=== PATIENT | female | born 1980 | race Caucasian/White ===

== ENCOUNTER 2016-12-27 17:10 | Emergency (ER) | payer OTHER ==
[~2016-12-27] VITALS: Ht 160 cm; Wt 89.0 kg
[2016-12-27 17:12] VITALS: Ht 160 cm; Wt 89.0 kg
[2016-12-27] MEDS ORDERED: ACETAMINOPHEN 325 MG TAB PO STA (17:32)
--- NOTE | 2016-12-27 17:39 | ERD ---
ER Documentation Chief Complaint Date/Time DATE: 12/27/16 TIME: 17:37 Chief Complaint 12 weeks with abd cramping HPI This is a 36-year-old female presenting to emergency department with healthy cramping while . Patient states she believes she is about 12 weeks . Patient is a A1. Patient states she went to her first OB appointment today and used a Doppler and was unable to detect heart tones. Patient states she was told to go to the ER for ultrasound and evaluation. Patient also states she has having right-sided lower pelvic pain. Denies vaginal bleeding or vaginal discharge. No fevers or chills. No nausea or vomiting. 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 ROS All systems reviewed and are negative except as per history of present illness. Medications Home Meds Active Scripts Ondansetron (Ondansetron Odt) 4 Mg Tab.rapdis, 4 MG PO Q6H Y for NAUSEA AND/OR VOMITING, #20 TAB Prov:MONICA DENG 12/28/16 Acetaminophen* (Tylenol*) 500 Mg Tab, 1000 MG PO Q8H Y for PAIN AND OR ELEVATED TEMP for 5 Days, TAB Prov:MONICA DENG 12/28/16 Acetaminophen* (Tylenol*) 325 Mg Tablet, 1 TAB PO Q6 Y for PAIN AND OR ELEVATED TEMP, #20 TAB Prov:RY JOHNSON NP 12/27/16 Nitrofurantoin Monohyd Macrocr* (Macrobid*) 100 Mg Capsr, 100 MG PO BID for 5 Days, CAP Prov:RY JOHNSON NP 12/27/16 Allergies Allergies: Coded Allergies: sumatriptan (Verified Allergy, Unknown, 12/28/16) Physical Exam Vitals Vital Signs Date Time Temp Pulse Resp B/P Pulse Ox O2 Delivery O2 Flow Rate FiO2 12/27/16 17:12 98.1 80 18 132/75 99 Physical Exam Const: No acute distress, alert Head: Atraumatic Eyes: Normal Conjunctiva ENT: Normal External Ears, Nose and Mouth. Neck: Full range of motion..~ No meningismus. Resp: Clear to auscultation bilaterally Cardio: Regular rate and rhythm, no murmurs Abd: Soft, non tender, non distended. Normal bowel sounds Skin: No petechiae or rashes Back: No midline or flank tenderness Ext: No cyanosis, or edema Neur: Awake and alert Psych: Normal Mood and Affect Result Diagram: 12/27/16 1750 Results 24 hrs Laboratory Tests Test 12/27/16 17:50 White Blood Count 10.710^3/ul Red Blood Count 4.1410^6/ul Hemoglobin 12.2g/dl Hematocrit 36.5% Mean Corpuscular Volume 88.2fl Mean Corpuscular Hemoglobin 29.5pg Mean Corpuscular Hemoglobin Concent 33.4g/dl Red Cell Distribution Width 13.1% Platelet Count 35658^3/UL Mean Platelet Volume 9.3fl Neutrophils % 65.9% Lymphocytes % 26.0% Monocytes % 5.7% Eosinophils % 1.5% Basophils % 0.5% Nucleated Red Blood Cells % 0.0/100WBC Neutrophils # (Manual) 710^3/ul Lymphocytes # 2.810^3/ul Monocytes # 0.610^3/ul Eosinophils # 0.210^3/ul Basophils # 0.110^3/ul Nucleated Red Blood Cells # 0.010^3/ul Urine Color YELLOW Urine Clarity SLIGHTLY CLOUDY Urine pH 5.0 Urine Specific [place] 1.017 Urine Ketones NEGATIVEmg/dL Urine Nitrite NEGATIVEmg/dL Urine Bilirubin NEGATIVEmg/dL Urine Urobilinogen NEGATIVEmg/dL Urine Leukocyte Esterase TRACELeu/ul Urine Microscopic RBC 1/HPF Urine Microscopic WBC 1/HPF Urine Squamous Epithelial Cells FEW/HPF Urine Bacteria FEW/HPF Urine Mucus FEW/HPF Urine Hemoglobin NEGATIVEmg/dL Urine Glucose NEGATIVEmg/dL Urine Total Protein NEGATIVEmg/dl Beta HCG, Quantitative 63464.0mIU/ml Current Medications Medications (Trade) Dose Ordered Sig/Vera Route PRN Reason Start Time Stop Time Status Last Admin Dose Admin Acetaminophen (Tylenol Tab) 650 mg ONCE STAT PO 12/27/16 17:32 12/27/16 17:35 DC 12/27/16 17:42 Procedures/MDM [place] [id number] Radiology Main Line: [phone] DIAGNOSTIC IMAGING REPORT Patient: NOMRA HOLLOWAY : 1980 Age: 36 Sex: F MR #: [id number] DOS: 12/27/16 1732 Ordering MD: RY JOHNSON NP Location: [facility] Room/Bed: PROCEDURE: US OB. CLINICAL INDICATION: Positive . Vaginal bleeding. Evaluate viability , no heart tones detected at clinic TECHNIQUE: Transabdominal views of the pelvis are available for review. COMPARISON: No prior studies are available for comparison. FINDINGS: Uterus: No evidence of masses and normal in size estimated at 11.8 x 7.3 cm. Endometrial cavity: Intrauterine gestational sac, yolk sac and pole are present with the following information: [place]-rump length: 1.65 cm heart rate: 168 bpm Gestational sac: 3.08 cm Ultrasound estimated gestational age: 8 weeks 1 day Small hypoechoic subchorionic hemorrhage measures 2 x 1.5 x 0.6 cm. Right ovary/adnexa: The ovary is not visualized. No adnexal mass lesion is seen. Left ovary/adnexa: The ovary is not visualized. No adnexal mass lesion is seen. Cul-de-sac: There is no free fluid. RPTAT:HJJR IMPRESSION: 1. Single viable intrauterine with an estimated gestational age of 8 weeks 1 day, the estimated date of delivery 08/07/2017. 2. Subchorionic hemorrhage estimated at 2 cm. Consider follow-up evaluation. MDM: This is a 36-year-old female presenting to emergency department with right- sided lower pelvic cramping starting today. Patient is currently 12 weeks with last menstrual period . Patient denies vaginal bleeding or vaginal discharge. Vital signs are stable. No fevers or chills. Labs and urine collected. OB ultrasound reviewed by radiologist as single viable intrauterine with an estimated gestational age of 8 weeks 1 day. Subchorionic hemorrhage estimated at 2 cm. CBC shows no significant anemia [place]. [place] [address].0. UA shows few bacteria and mucus. Patient given Tylenol p.o. while in the ED. patient is alert and oriented throughout ED visit. Patient is stable and nontoxic-appearing. Differential diagnosis includes but not limited to ectopic , threatened , missed , normal , subchorionic hemorrhage , ruptured ovarian cyst, UTI or pyelonephritis. Patient is appropriate for outpatient management. Patient was given prescription for Macrobid and Tylenol. Return to ED sooner for any high fever, chest pain, difficulty breathing, shortness breath, wheezing, vomiting, diarrhea , abdominal pain or any new or worsening symptoms. Patient verbalizes understanding. All questions answered at discharge. Departure Diagnosis: Primary Impression: Pelvic pain affecting Additional Impression: Weeks of gestation: 8 weeks Qualified Code: Z3A.08 - 8 weeks gestation of Condition: Stable RY JOHNSON NP Dec 27, 2016 17:39
[2016-12-27 18:15] LABS: BASOPHIL # 0.1 10^3/ul (0.0-0.1); BASOPHILS % 0.5 % (0.0-2.0); EOSINOPHILS # 0.2 10^3/ul (0.0-0.5); EOSINOPHILS % 1.5 % (0.0-7.0); HEMATOCRIT 36.5 % (37.0-47.0); HEMOGLOBIN 12.2 g/dl (12.0-16.0); LYMPHOCYTES # 2.8 10^3/ul (0.8-2.9); MEAN CORPUSCULAR HEMOGLOBIN 29.5 pg (29.0-33.0); MEAN CORPUSCULAR HGB CONC 33.4 g/dl (32.0-37.0); MEAN CORPUSCULAR VOLUME 88.2 fl (82.0-101.0); MEAN PLATELET VOLUME 9.3 fl (7.4-10.4); MONOCYTE # 0.6 10^3/ul (0.3-0.9); MONOCYTES % 5.7 % (0.0-11.0); NEUTROPHILS % 65.9 % (39.0-77.0); PLATELET COUNT 288 10^3/UL (140-415); RED BLOOD COUNT 4.14 10^6/ul (4.20-5.40); RED CELL DISTRIBUTION WIDTH 13.1 % (11.5-14.5); WHITE BLOOD COUNT 10.7 10^3/ul (4.8-10.8)
[2016-12-27 18:23] LABS: ADD UMIC YES; UR ASCORBIC ACID NEGATIVE (NEGATIVE); UR BACTERIA FEW /HPF (NONE SEEN); UR BILIRUBIN (Dip) NEGATIVE (NEGATIVE); UR BLOOD (Dip) NEGATIVE (NEGATIVE); UR CLARITY SLIGHTLY CLOUDY (CLEAR); UR COLOR YELLOW (YELLOW); UR GLUCOSE (Dip) NEGATIVE (NEGATIVE); UR KETONES (Dip) NEGATIVE (NEGATIVE); UR LEUKOCYTE ESTERASE (Dip) TRACE Leu/ul (NEGATIVE); UR MUCUS FEW /HPF (NONE SEEN); UR NITRITE (Dip) NEGATIVE (NEGATIVE); UR RBC 1 /HPF (0-5); UR SPECIFIC GRAVITY (Dip) 1.017 (1.003-1.030); UR SQUAMOUS EPITHELIAL CELL FEW /HPF (FEW); UR TOTAL PROTEIN (Dip) NEGATIVE (NEGATIVE); UR UROBILINOGEN (Dip) NEGATIVE (NEGATIVE)
--- NOTE | 2016-12-27 18:32 | RADRPT ---
PROCEDURE: US OB. CLINICAL INDICATION: Positive . Vaginal bleeding. Evaluate viability, no heart ton es detected at clinic TECHNIQUE: Transabdominal views of the pelvis are available for review. COMPARISON: No prior studies are available for comparison. FINDINGS: Uterus: No evidence of masses and normal in size estimated at 11.8 x 7.3 cm. Endometrial cavity: Intrauterine gestational sac, yolk sac and pole are present with the foll owing information: [place]-rump length:1.65 cm heart rate:168 bpm Gestational sac:3.08 cm Ultrasound estimated gestational age:8 weeks 1 day Small hypoechoic subchorionic hemorrhage measures 2 x 1.5 x 0.6 cm. Right ovary/adnexa: The ovary is not visualized. No adnexal mass lesion is seen. Left ovary/adnexa: The ovary is not visualized. No adnexal mass lesion is seen. Cul-de-sac: There is no free fluid. RPTAT:HJJR IMPRESSION: 1. Single viable intrauterine with an estimated gestational age of 8 weeks 1 day, the est imated date of delivery 08/07/2017. 2. Subchorionic hemorrhage estimated at 2 cm. Consider follow-up evaluation. Physician Rosana Date Time Electronically viewed and signed by Physician Rosana on 12/27/2016 18:32 JR/
[2016-12-27] MEDS ORDERED: ACET325T33 PO (19:29)
[2016-12-27] MEDS ORDERED: NITR-58 PO (19:29)
[2016-12-28] MEDS ORDERED: ONDA4TAB14 PO (13:42)
[2016-12-28] MEDS ORDERED: TYL500 PO (13:42)
== END 2016-12-27 19:36 | disposition home or self-care (01) ==
LOC: FTE 17:10
DX: O26.891 Other specified pregnancy related conditions, first trimester (principal); R10.2 Pelvic and perineal pain; Z3A.08 8 weeks gestation of pregnancy
CPT/HCPCS: 36415; 76801; 81001; 84702; 85025; 86900; 86901; Z7502; Z7610

== ENCOUNTER 2016-12-28 11:17 | Emergency (ER) | payer OTHER ==
[~2016-12-28] VITALS: Wt 99.6 kg
[~2016-12-28 11:17] MED LIST: ACET325T33 PO; NITR-58 PO
[2016-12-28] MEDS ORDERED: ACETAMINOPHEN 500 MG TAB PO STA (11:56)
[2016-12-28] MEDS ORDERED: DIPHENHYDRAMINE 50 MG INJ IV ONE (12:00)
[2016-12-28] MEDS ORDERED: METOCLOPRAMIDE 10 MG INJ IV ONE (12:00)
[2016-12-28] MEDS ORDERED: SOD CHLORIDE 0.9% 1,000 ML IV ONE (12:00)
[2016-12-28 12:34] LABS: BASOPHILS % 0.2 % (0.0-2.0); EOSINOPHILS # 0.1 10^3/ul (0.0-0.5); EOSINOPHILS % 1.3 % (0.0-7.0); HEMATOCRIT 37.1 % (37.0-47.0); HEMOGLOBIN 12.5 g/dl (12.0-16.0); LYMPHOCYTES # 2.2 10^3/ul (0.8-2.9); LYMPHOCYTES % 26.7 % (15.0-51.0); MEAN CORPUSCULAR HEMOGLOBIN 29.5 pg (29.0-33.0); MEAN CORPUSCULAR HGB CONC 33.7 g/dl (32.0-37.0); MEAN CORPUSCULAR VOLUME 87.5 fl (82.0-101.0); MEAN PLATELET VOLUME 9.1 fl (7.4-10.4); MONOCYTE # 0.5 10^3/ul (0.3-0.9); NEUTROPHILS % 65.4 % (39.0-77.0); PLATELET COUNT 276 10^3/UL (140-415); RED BLOOD COUNT 4.24 10^6/ul (4.20-5.40); RED CELL DISTRIBUTION WIDTH 13.2 % (11.5-14.5); WHITE BLOOD COUNT 8.3 10^3/ul (4.8-10.8)
[2016-12-28 12:44] LABS: ADD UMIC YES; UR ASCORBIC ACID NEGATIVE (NEGATIVE); UR BACTERIA FEW /HPF (NONE SEEN); UR BILIRUBIN (Dip) NEGATIVE (NEGATIVE); UR BLOOD (Dip) NEGATIVE (NEGATIVE); UR CLARITY CLOUDY (CLEAR); UR COLOR YELLOW (YELLOW); UR GLUCOSE (Dip) NEGATIVE (NEGATIVE); UR KETONES (Dip) NEGATIVE (NEGATIVE); UR LEUKOCYTE ESTERASE (Dip) 3+ Leu/ul (NEGATIVE); UR NITRITE (Dip) NEGATIVE (NEGATIVE); UR RBC 0 /HPF (0-5); UR SPECIFIC GRAVITY (Dip) 1.014 (1.003-1.030); UR SQUAMOUS EPITHELIAL CELL MANY /HPF (FEW); UR TOTAL PROTEIN (Dip) NEGATIVE (NEGATIVE); UR UROBILINOGEN (Dip) NEGATIVE (NEGATIVE)
[2016-12-28 12:54] LABS: ALBUMIN 4.2 g/dl (3.3-4.9); ALBUMIN/GLOBULIN RATIO 1.2; BILIRUBIN,INDIRECT 0.4 mg/dl (0-1.1); BILIRUBIN,TOTAL 0.4 mg/dl (0.2-1.3); CALCIUM 9.1 mg/dl (8.4-10.2); CREATININE 0.66 mg/dl (0.44-1.00); POTASSIUM 3.6 mmol/L (3.5-5.1); TOTAL PROTEIN 7.7 g/dl (6.1-8.1)
[2016-12-28] MEDS ORDERED: ONDA4TAB14 PO (13:42)
[2016-12-28] MEDS ORDERED: TYL500 PO (13:42)
--- NOTE | 2016-12-28 13:50 | ERD ---
ER Documentation Chief Complaint Date/Time DATE: 12/28/16 TIME: 13:44 Chief Complaint ABD PAIN, N/V, PT 8 WKS PG, NO VB HPI This is a 36-year-old female presents to the ER for headache that started yesterday after she was here in the ER. Patient was sent because the doctor could not hear any heart tones, however ultrasound was completely normal yesterday. Patient states that headache is throbbing in quality she does admit to photophobia. Patient has a history of migraine headaches, however states that today she began to have nausea and nonbilious nonbloody vomiting. She tried taking Tylenol for the pain, however she vomited Tylenol up. Patient denies any urinary frequency or dysuria, however she does have a UTI which was found yesterday. Patient has not gone to fill her prescription. Patient denies any flank pain at this time. She has not had any fevers or chills. She denies any trauma. A1. ROS 12 point review of systems was done, all negative except per HPI. Medications Home Meds Active Scripts Ondansetron (Ondansetron Odt) 4 Mg Tab.rapdis, 4 MG PO Q6H Y for NAUSEA AND/OR VOMITING, #20 TAB Prov:MONICA DENG 12/28/16 Acetaminophen* (Tylenol*) 500 Mg Tab, 1000 MG PO Q8H Y for PAIN AND OR ELEVATED TEMP for 5 Days, TAB Prov:MONICA DENG C 12/28/16 Acetaminophen* (Tylenol*) 325 Mg Tablet, 1 TAB PO Q6 Y for PAIN AND OR ELEVATED TEMP, #20 TAB Prov:RY JOHNSON NP 12/27/16 Nitrofurantoin Monohyd Macrocr* (Macrobid*) 100 Mg Capsr, 100 MG PO BID for 5 Days, CAP Prov:RY JOHNSON NP 12/27/16 Allergies Allergies: Coded Allergies: sumatriptan (Verified Allergy, Unknown, 12/28/16) PMhx/Soc History of Surgery: Yes (csect) Hx Neurological Disorder: Yes (migraine) Hx Respiratory Disorders: Yes (asthma) Hx Substance Use: No Hx Tobacco Use: No Physical Exam Vitals Vital Signs Date Time Temp Pulse Resp B/P Pulse Ox O2 Delivery O2 Flow Rate FiO2 12/28/16 11:19 98.3 80 18 129/64 100 Physical Exam GENERAL: The patient is well developed and appropriate for usual state of health , in no apparent distress. HEENT: Atraumatic. Conjunctivae are pink. Pupils equal, round, and reactive to light. Extraocular muscles are grossly intact. Bilateral tympanic membranes are clear with no evidence of erythema, bulging or perforation. No sinus tenderness. NECK: C-spine is soft and supple. There is no cervical lymphadenopathy. CHEST: Clear to auscultation bilaterally. There are no rales, wheezes or rhonchi. HEART: Regular rate and rhythm. No murmurs, clicks, rubs or gallops. EXTREMITIES: Equal pulses bilaterally. There is no peripheral clubbing, cyanosis or edema. No focal swelling or erythema. Full range of motion. Grossly neurovascularly intact. NEURO: Alert and oriented. Cranial nerves II through XII are intact. Motor strength in all 4 extremities with 5/5 strength. Sensation grossly intact. Normal speech and gait. Negative [place]om[place]. +2 DTRs. SKIN: There is no apparent rash or petechia. The skin is warm and dry. Result Diagram: 12/28/16 1220 12/28/16 1220 Results 24 hrs Laboratory Tests Test 12/28/16 12:20 White Blood Count 8.310^3/ul Red Blood Count 4.2410^6/ul Hemoglobin 12.5g/dl Hematocrit 37.1% Mean Corpuscular Volume 87.5fl Mean Corpuscular Hemoglobin 29.5pg Mean Corpuscular Hemoglobin Concent 33.7g/dl Red Cell Distribution Width 13.2% Platelet Count 68044^3/UL Mean Platelet Volume 9.1fl Neutrophils % 65.4% Lymphocytes % 26.7% Monocytes % 6.0% Eosinophils % 1.3% Basophils % 0.2% Nucleated Red Blood Cells % 0.0/100WBC Neutrophils # (Manual) 510^3/ul Lymphocytes # 2.210^3/ul Monocytes # 0.510^3/ul Eosinophils # 0.110^3/ul Basophils # 0.010^3/ul Nucleated Red Blood Cells # 0.010^3/ul Urine Color YELLOW Urine Clarity CLOUDY Urine pH 7.0 Urine Specific [place] 1.014 Urine Ketones NEGATIVEmg/dL Urine Nitrite NEGATIVEmg/dL Urine Bilirubin NEGATIVEmg/dL Urine Urobilinogen NEGATIVEmg/dL Urine Leukocyte Esterase 3+Tj/ul Urine Microscopic RBC 0/HPF Urine Microscopic WBC 7/HPF Urine Squamous Epithelial Cells MANY/HPF Urine Bacteria FEW/HPF Urine Hemoglobin NEGATIVEmg/dL Urine Glucose NEGATIVEmg/dL Urine Total Protein NEGATIVEmg/dl Sodium Level 138mmol/L Potassium Level 3.6mmol/L Chloride Level 103mmol/L Carbon Dioxide Level 26mmol/L Anion Gap 13 Blood Urea Nitrogen 8mg/dl Creatinine 0.66mg/dl Glucose Level 88mg/dl Calcium Level 9.1mg/dl Total Bilirubin 0.4mg/dl Direct Bilirubin 0.00mg/dl Indirect Bilirubin 0.4mg/dl Aspartate Amino Transf (AST/SGOT) 37IU/L Alanine Aminotransferase (ALT/SGPT) 52IU/L Alkaline Phosphatase 76IU/L Total Protein 7.7g/dl Albumin 4.2g/dl Globulin 3.50g/dl Albumin/Globulin Ratio 1.20 Current Medications Medications (Trade) Dose Ordered Sig/Vera Route PRN Reason Start Time Stop Time Status Last Admin Dose Admin Acetaminophen 1000 mg 1,000 mg ONCE STAT PO 12/28/16 11:56 12/28/16 11:59 DC 12/28/16 12:43 Sodium Chloride (NS) 1,000 ml @ 1,000 mls/hr Q1H ONCE IV 12/28/16 12:00 12/28/16 12:59 DC 12/28/16 12:37 Metoclopramide HCl (Reglan) 10 mg ONCE ONCE IV 12/28/16 12:00 12/28/16 12:01 DC 12/28/16 12:43 Diphenhydramine HCl (Benadryl) 25 mg ONCE ONCE IV 12/28/16 12:00 12/28/16 12:01 DC 12/28/16 12:43 Procedures/MDM Differential Diagnosis includes but is not limited to; tension headache, migraine headache, cluster headache, sinus headache, nonspecific febrile headache, trigeminal neurologia, subdural hematoma, subarachnoid bleeding, meningitis, encephalitis. Patient is neurologically intact with no focal neurological deficits. At this time patient is likely suffering from a migraine headache. Patient does have a past medical history of this, in the ER she was given Tylenol, fluids, Reglan, Benadryl she felt significantly better after this. There was no evidence of severe dehydration as her electrolytes were normal and she did not have any episodes of vomiting in the ER. Patient successfully ate some peter crackers and a Sprite soda. Patient does have significant UTI, she was told to immediately fill the prescription she was given yesterday. Patient showed me prescription, and stated she would go upon discharge. Patient is afebrile and extremely well-appearing. Patient is to follow-up with her primary care doctor within 1-2 days return to ER sooner if symptoms worsen. My medical decision making shared with the patient she understands and agrees to plan. Departure Diagnosis: Primary Impression: Migraine headache Additional Impression: Nausea and vomiting Condition: Stable Patient Instructions: Nausea and Vomiting-Adult Additional Instructions: Call your primary care doctor TOMORROW for an appointment during the next 1-2 days.See the doctor sooner or return here if your condition worsens before your appointment time. MONICA DENG Dec 28, 2016 13:50
[2016-12-28 14:42] VITALS: BP 106/55; PULSE 71; RESP 19; TEMP 98.2
== END 2016-12-28 14:43 | disposition home or self-care (01) ==
LOC: FTE 11:17
DX: G43.909 Migraine, unspecified, not intractable, without status migrainosus (principal); R11.2 Nausea with vomiting, unspecified; J45.909 Unspecified asthma, uncomplicated
CPT/HCPCS: 36415; 80053; 81001; 85025; 96374; 96375; J1200; J2765; J7030; Z7502; Z7610

== ENCOUNTER 2017-01-28 20:17 | Emergency (ER) | payer OTHER ==
[~2017-01-28] VITALS: Ht 167.6 cm; Wt 104.0 kg
[~2017-01-28 20:17] MED LIST changes: +ONDA4TAB14 PO; +TYL500 PO
[2017-01-28 20:19] VITALS: Ht 167.6 cm; Wt 104.0 kg
--- NOTE | 2017-01-28 22:40 | ERD ---
ER Documentation Chief Complaint Date/Time DATE: 01/28/17 TIME: 22:39 Chief Complaint 15 wks , pelvic pain x 2 day HPI 36-year-old female presents here in emergency department for complaints of pelvic pain for 2 days. Patient is approximately 15 weeks . Is 7 para 6 .. Due date is 07/09/2017. LMP 10/03/2016. Patient's complete of pelvic pain and cramping pain, for/and scale, not better or worse with anything. Patient denies any hematuria or dysuria. Patient denies any fever or chills. Patient denies any flank pain. Patient denies any vaginal bleeding. ROS All systems reviewed and are negative except as per history of present illness. Medications Home Meds Active Scripts Ondansetron (Ondansetron Odt) 4 Mg Tab.rapdis, 4 MG PO Q6H Y for NAUSEA AND/OR VOMITING, #20 TAB Prov:MONICA DENG C 12/28/16 Acetaminophen* (Tylenol*) 500 Mg Tab, 1000 MG PO Q8H Y for PAIN AND OR ELEVATED TEMP for 5 Days, TAB Prov:MONICA DENG 12/28/16 Acetaminophen* (Tylenol*) 325 Mg Tablet, 1 TAB PO Q6 Y for PAIN AND OR ELEVATED TEMP, #20 TAB Prov:RY JOHNSON NP 12/27/16 Nitrofurantoin Monohyd Macrocr* (Macrobid*) 100 Mg Capsr, 100 MG PO BID for 5 Days, CAP Prov:RY JOHNSON NP 12/27/16 Allergies Allergies: Coded Allergies: sumatriptan (Verified Adverse Reaction, Severe, nausea, vomit, 01/28/17) PMhx/Soc History of Surgery: Yes (csec x4) Anesthesia Reaction: No Hx Neurological Disorder: Yes (migraine) Hx Respiratory Disorders: Yes (asthma) Hx Cardiac Disorders: No Hx Psychiatric Problems: No Hx Miscellaneous Medical Probl: No Hx Alcohol Use: No (stop ETOH) 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 CHEST: Clear to auscultation bilaterally. There are no rales, wheezes or rhonchi. HEART: Regular rate and rhythm. No murmurs, clicks, rubs or gallops. No S3 or S4. ABDOMEN: Soft, nontender and nondistended. Good bowel sounds. No rebound or guarding. No gross peritonitis. No gross organomegaly or masses. No Elmore sign or McBurney point tenderness. BACK: No midline or flank tenderness. EXTREMITIES: Equal pulses bilaterally. There is no peripheral clubbing, cyanosis or edema. No focal swelling or erythema. Full range of motion. Grossly neurovascularly intact. NEURO: Alert and oriented. Cranial nerves 2-12 intact. Motor strength in all 4 extremities with 5/5 strength. Sensation grossly intact. Normal speech and gait. SKIN: There is no apparent rash or petechia. The skin is warm and dry. HEMATOLOGIC AND LYMPHATIC: There is no evidence of excessive bruising or lymphedema. No gross cervical, axillary, or inguinal lymphadenopathy. Result Diagram: 01/28/17223901/28/172239 Results 24 hrs Laboratory Tests Test 01/28/17 22:40 01/28/17 22:44 01/28/17 22:47 White Blood Count 11.210^3/ul Red Blood Count 3.9510^6/ul Hemoglobin 11.7g/dl Hematocrit 35.3% Mean Corpuscular Volume 89.4fl Mean Corpuscular Hemoglobin 29.6pg Mean Corpuscular Hemoglobin Concent 33.1g/dl Red Cell Distribution Width 13.2% Platelet Count 81862^3/UL Mean Platelet Volume 9.1fl Neutrophils % 63.4% Lymphocytes % 27.9% Monocytes % 6.3% Eosinophils % 1.8% Basophils % 0.2% Nucleated Red Blood Cells % 0.0/100WBC Neutrophils # 7.110^3/ul Lymphocytes # 3.110^3/ul Monocytes # 0.710^3/ul Eosinophils # 0.210^3/ul Basophils # 0.010^3/ul Nucleated Red Blood Cells # 0.010^3/ul Sodium Level 140mmol/L Potassium Level 3.8mmol/L Chloride Level 105mmol/L Carbon Dioxide Level 27mmol/L Anion Gap 12 Blood Urea Nitrogen 12mg/dl Creatinine 0.65mg/dl Glucose Level 85mg/dl Calcium Level 9.4mg/dl Total Bilirubin 0.1mg/dl Direct Bilirubin 0.00mg/dl Indirect Bilirubin 0.1mg/dl Aspartate Amino Transf (AST/SGOT) 21IU/L Alanine Aminotransferase (ALT/SGPT) 39IU/L Alkaline Phosphatase 61IU/L Total Protein 7.5g/dl Albumin 3.9g/dl Globulin 3.60g/dl Albumin/Globulin Ratio 1.08 Beta HCG, Quantitative 40413.0mIU/ml Urine Color YELLOW Urine Clarity CLOUDY Urine pH 6.0 Urine Specific [place] 1.010 Urine Ketones NEGATIVEmg/dL Urine Nitrite NEGATIVEmg/dL Urine Bilirubin NEGATIVEmg/dL Urine Urobilinogen NEGATIVEmg/dL Urine Leukocyte Esterase 1+Tj/ul Urine Microscopic RBC 4/HPF Urine Microscopic WBC 3/HPF Urine Squamous Epithelial Cells MANY/HPF Urine Bacteria FEW/HPF Urine Mucus FEW/HPF Urine Hemoglobin NEGATIVEmg/dL Urine Glucose NEGATIVEmg/dL Urine Total Protein NEGATIVEmg/dl Current Medications Medications (Trade) Dose Ordered Sig/Vera Route PRN Reason Start Time Stop Time Status Last Admin Dose Admin Ceftriaxone Sodium (Rocephin) 1 gm ONCE ONCE IM 01/29/17 00:00 01/29/17 00:01 DC IM Rocephin was given here in emergency department for treatment for urinary tract infection. PROCEDURE: US OB. CLINICAL INDICATION: Pelvic pain. TECHNIQUE: Multiple sonographic images of the pelvis were obtained. Transabdominal imaging only was performed. The images were reviewed on a PACS workstation. COMPARISON: Pelvic ultrasound dated 12/27/2016. FINDINGS: There is a single viable intrauterine gestation. Cardiac activity is present with a heart rate of 150 bpm. Measurements were made in order to determine age. The results are as follows: BPD = 2.57 cm HC = 9.55 cm AC = 9.02 cm FL = 1.65 cm Estimated gestational age of approximately 14 weeks 5 days. The estimated date of delivery is 07/24/2017. The EFW = 111.51 g. The placenta is posterior. There is no free fluid and there are no adnexal masses. The right ovary is not identified. The left ovary measures 3.6 x 2.3 x 2.2 cm and demonstrates normal flow. IMPRESSION: 1. Single viable intrauterine gestation of approximately 14 weeks 5 days. 2. The estimated date of delivery is 07/24/2017.. RPTAT: HLBP .Ben Arce MD, MD Date Time Electronically viewed and signed by .Ben Arce MD, MD on 01/29/2017 00:05 .P/ Procedures/MDM Medical Decision Making: patient's symptoms of pelvic pain most likely is consistent with urinary tract infection. Patient does not have any vaginal bleeding. Patient is Rh- but no bleeding noted. Chuck is not indicated at this time. Patient does not have any symptoms of pyelonephritis. Patient presents hemodynamically stable. Patient has a good heart tone with a 14 week noted and ultrasound. No placenta previa or abruption noted.There is low suspicion for abdominal emergencies at this time. Patients abdominal exam is normal at this time. Patients radiology exam does not show any abdominal emergencies at this time. There is low suspicion for appendicitis, cholecystitis , abdominal aortic aneurysms or peritonitis at this time. There is low suspicion for sepsis. Patient appears well and is hemodynamically stable. Disposition: Home. Condition: Stable Prescription Keflex, Tylenol Instructions: Patient is advised to take medications as prescribed. Patient is advised to rest, increase fluid intake and do brat diet for next 1-2 days and progress as tolerated. Patient is advised that if symptoms are worse, severe abdominal pain, uncontrolled vomiting, high fever, severe flank pain, worst signs and symptoms, to return to the emergency department immediately. Otherwise, patient can follow up with primary care doctor in 5-7 days. Disclaimer: Inadvertent spelling and grammatical errors are likely due to EHR/ dictation software use and do not reflect on the overall quality of patient care. Also, please note that the electronic time recorded on this note does not necessarily reflect the actual time of the patient encounter. Departure Diagnosis: Primary Impression: UTI (urinary tract infection) Urinary tract infection type: acute cystitis Hematuria presence: without hematuria Qualified Code: N30.00 - Acute cystitis without hematuria Additional Impression: Intrauterine Condition: Stable Patient Instructions: Understanding Urinary Tract Infections (UTIs) Additional Instructions: Patient is advised to take medications as prescribed. Patient is advised to rest , increase fluid intake and do brat diet for next 1-2 days and progress as tolerated. Patient is advised that if symptoms are worse, severe abdominal pain , uncontrolled vomiting, high fever, severe flank pain, worst signs and symptoms , to return to the emergency department immediately. Otherwise, patient can follow up with primary care doctor in 5-7 days. GONZALO SHIN. FRANCES Jan 28, 2017 22:40
[2017-01-28 22:52] LABS: BASOPHILS % 0.2 % (0.0-2.0); EOSINOPHILS # 0.2 10^3/ul (0.0-0.5); EOSINOPHILS % 1.8 % (0.0-7.0); HEMATOCRIT 35.3 % (37.0-47.0); HEMOGLOBIN 11.7 g/dl (12.0-16.0); LYMPHOCYTES # 3.1 10^3/ul (0.8-2.9); LYMPHOCYTES % 27.9 % (15.0-51.0); MEAN CORPUSCULAR HEMOGLOBIN 29.6 pg (29.0-33.0); MEAN CORPUSCULAR HGB CONC 33.1 g/dl (32.0-37.0); MEAN CORPUSCULAR VOLUME 89.4 fl (82.0-101.0); MEAN PLATELET VOLUME 9.1 fl (7.4-10.4); MONOCYTE # 0.7 10^3/ul (0.3-0.9); MONOCYTES % 6.3 % (0.0-11.0); NEUTROPHIL # 7.1 10^3/ul (1.6-7.5); NEUTROPHILS % 63.4 % (39.0-77.0); PLATELET COUNT 284 10^3/UL (140-415); RED BLOOD COUNT 3.95 10^6/ul (4.20-5.40); RED CELL DISTRIBUTION WIDTH 13.2 % (11.5-14.5); WHITE BLOOD COUNT 11.2 10^3/ul (4.8-10.8)
[2017-01-28 23:02] LABS: ADD UMIC YES; UR ASCORBIC ACID NEGATIVE (NEGATIVE); UR BACTERIA FEW /HPF (NONE SEEN); UR BILIRUBIN (Dip) NEGATIVE (NEGATIVE); UR BLOOD (Dip) NEGATIVE (NEGATIVE); UR CLARITY CLOUDY (CLEAR); UR COLOR YELLOW (YELLOW); UR GLUCOSE (Dip) NEGATIVE (NEGATIVE); UR KETONES (Dip) NEGATIVE (NEGATIVE); UR LEUKOCYTE ESTERASE (Dip) 1+ Leu/ul (NEGATIVE); UR MUCUS FEW /HPF (NONE SEEN); UR NITRITE (Dip) NEGATIVE (NEGATIVE); UR RBC 4 /HPF (0-5); UR SQUAMOUS EPITHELIAL CELL MANY /HPF (FEW); UR TOTAL PROTEIN (Dip) NEGATIVE (NEGATIVE); UR UROBILINOGEN (Dip) NEGATIVE (NEGATIVE)
[2017-01-28 23:07] LABS: ALBUMIN 3.9 g/dl (3.3-4.9); ALBUMIN/GLOBULIN RATIO 1.08; BILIRUBIN,INDIRECT 0.1 mg/dl (0-1.1); BILIRUBIN,TOTAL 0.1 mg/dl (0.2-1.3); CALCIUM 9.4 mg/dl (8.4-10.2); CREATININE 0.65 mg/dl (0.44-1.00); POTASSIUM 3.8 mmol/L (3.5-5.1); TOTAL PROTEIN 7.5 g/dl (6.1-8.1)
[2017-01-29] MEDS ORDERED: CEFTRIAXONE 1 GM INJ IM ONE
--- NOTE | 2017-01-29 00:05 | RADRPT ---
PROCEDURE: US OB. CLINICAL INDICATION: Pelvic pain. TECHNIQUE: Multiple sonographic images of the pelvis were obtained. Transabdominal imaging only wa s performed. The images were reviewed on a PACS workstation. COMPARISON: Pelvic ultrasound dated 12/27/2016. FINDINGS: There is a single viable intrauterine gestation. Cardiac activity is present with a heart rate of 1 50 bpm. Measurements were made in order to determine age. The results are as follows: BPD = 2.57 cm HC = 9.55 cm AC = 9.02 cm FL = 1.65 cm Estimated gestational age of approximately 14 weeks 5 days. The estimated date of delivery is 07/24/2017. The EFW = 111.51 g. The placenta is posterior. There is no free fluid and there are no adnexal masses. The right ovary is not identified. The left ovary measures 3.6 x 2.3 x 2.2 cm and demonstrates jyoti l flow. IMPRESSION: 1. Single viable intrauterine gestation of approximately 14 weeks 5 days. 2. The estimated date of delivery is 07/24/2017.. RPTAT: HLBP .Ben Arce MD, MD Date Time Electronically viewed and signed by .Ben Arce MD, MD on 01/29/2017 00:05 .P/
[2017-01-29] MEDS ORDERED: CEPH-443 PO (00:09)
[2017-01-29] MEDS ORDERED: ACET500C5 PO (00:09)
[2017-01-29 00:48] VITALS: BP 128/65; PULSE 72; RESP 20; TEMP 98.3
== END 2017-01-29 00:50 | disposition home or self-care (01) ==
LOC: FTE 20:17
DX: O23.12 Infections of bladder in pregnancy, second trimester (principal); J45.909 Unspecified asthma, uncomplicated; R10.2 Pelvic and perineal pain; Z3A.14 14 weeks gestation of pregnancy; Z87.891 Personal history of nicotine dependence
CPT/HCPCS: 36415; 76805; 80053; 81001; 84702; 85025; 86900; 86901; 96372; J0696; Z7502